=== PATIENT | female | born 1940 | race Two or more races ===

== ENCOUNTER → 2024-11-10 | Outpatient (CLI) | payer MEDICARE, MEDICAID, SELFPAY ==
--- NOTE | 2024-11-10 16:14 | XR_ITS ---
Examination: Abdomen AP single view Technique: AP portable supine abdomen, single view Exam date and time: November 10, 2024 1627 hours INDICATIONS: Left-sided abdominal pain beginning several years ago. FINDINGS: Large amounts of stool throughout the colon No obstruction No free air Surgical clips upper right abdomen Lumbar dextroscoliosis 15 degrees with advanced lumbar degenerative disc disease Moderate bilateral hip osteoarthritis IMPRESSION: Large amounts of stool throughout the colon
== END | disposition home or self-care (01) ==
LOC: CDIM 16:05
PROVIDERS: PCP Family Medicine; Referring Provider Specialist; Visit Provider Specialist
DX: K59.00 Constipation, unspecified (principal)
CPT/HCPCS: 74018

== ENCOUNTER → 2024-11-11 | Outpatient (CLI) | payer MEDICARE, MEDICAID, SELFPAY ==
--- NOTE | 2024-11-11 08:36 | XR_ITS ---
Examination: Abdomen sonogram, Limited Date and time of exam: November 11, 2024 0844 hours INDICATIONS: Left upper abdominal pain beginning 2 weeks ago, history gastritis Technique: Real-time saxena scale transabdominal sonographic images of the upper abdomen obtained. Findings: Absent gallbladder Normal common bile duct 0.4 cm Pancreatic head 2.7 cm Liver 16.8 cm smooth contour no focal liver lesions Normal hepatopedal portal venous flow Patent IVC IMPRESSION: Absent gallbladder Normal common bile duct Mild hepatomegaly
[2024-11-11 09:28] LABS: Basophils % (Auto) 0 % (0-2.5); Eosinophils # (Auto) 0.2 Thou/mm3 (0.0-0.5); Eosinophils % (Auto) 3 % (0-10); Hematocrit 41.1 % (36.0-46.0); Hemoglobin 13.4 g/dL (12.0-16.0); Immature Granulocytes % (Auto) 1 % (0-0); Immature Granulocytes Auto 0.04 Thou/mm3 (0.00-0.00); Lymphocytes # (Auto) 2.1 Thou/mm3 (1.0-4.8); Lymphocytes % (Auto) 30 % (10-50); Mean Corpuscular HGB Conc 32.6 g/dl (31.0-37.0); Mean Corpuscular Hemoglobin 31.1 pg (25.0-35.0); Mean Corpuscular Volume 95 fL (80-100); Monocytes # (Auto) 0.7 Thou/mm3 (0.0-0.8); Monocytes % (Auto) 11 % (0-12); Neutrophils # (Auto) 3.8 Thou/mm3 (1.8-7.7); Neutrophils % (Auto) 56 % (37-80); Nucleated Red Blood Cell % 0 /100 WBC (0); Platelet Count 256 Thou/mm3 (140-440); RDW Standard Deviation 46.5 fL (36.4-46.3); Red Blood Count 4.31 Miln/mm3 (4.00-5.20); White Blood Count 6.9 Thou/mm3 (3.6-11.0)
[2024-11-11 09:35] LABS: Collection Type, Urine Clean Catch; Squamous Epithelial Cell,Urine 0 /hpf (0-5)
[2024-11-11 10:03] LABS: Alanine Aminotransferase < 7 U/L (10-49); Albumin, Serum 4.6 gm/dL (3.4-4.8); Albumin/Globulin Ratio 1.5 (1.2-2.2); Alkaline Phosphatase 98 U/L (46-116); Amylase 116 U/L (30-118); Anion Gap 9 (7-16); Aspartate Amino Transferase 18 U/L (0-34); BUN/Creatinine Ratio 19 Ratio (12-20); Bilirubin,Total 1.4 mg/dL (0.3-1.2); Blood Urea Nitrogen 15 mg/dL (9-23); Calcium 10.9 mg/dL (8.3-10.6); Calcium (Corrected) 10.9 mg/dL (8.5-10.1); Carbon Dioxide 30.2 mMol/L (20.0-31.0); Chloride 98 mMol/L (98-107); Creatinine (Component) 0.8 mg/dL (0.6-1.3); Glucose 100 mg/dL (74-106); Lipase 40 U/L (12-53); Osmolality,Calculated 274 (275-295); Potassium 4.9 mMol/L (3.4-5.1); Sodium 137 mMol/L (136-145); Total Protein 7.6 gm/dL (5.7-8.2); eGFR > 60 See Note
[2024-11-11 10:55] LABS: Bilirubin,Urine Negative (Negative); Blood,Urine Negative (Negative); Clarity,Urine Clear (Clear/Hazy); Color,Urine Lt-Yellow (Lt Yel-Yel); Glucose, Urine 4+ (Negative); Ketones,Urine Negative (Negative); Leukocyte Esterase,Urine Negative (Negative); Nitrite,Urine Negative (Negative); Protein,Urine Negative (Neg - Trace); RBC,Urine 2 /hpf (0-3); Specific Gravity,Urine 1.017 (1.001-1.035); Urobilinogen,Urine Negative mg/dL (0.0-1.0); WBC,Urine < 1 /hpf (0-5)
== END | disposition home or self-care (01) ==
PROVIDERS: PCP Family Medicine; Referring Provider Specialist; Visit Provider Radiology Diagnostic Radiology
DX: R16.0 Hepatomegaly, not elsewhere classified (principal); Z90.49 Acquired absence of other specified parts of digestive tract; R10.9 Unspecified abdominal pain
CPT/HCPCS: 36415; 76705; 80053; 81001; 82150; 83690; 85025

== ENCOUNTER 2025-05-06 09:37 | Emergency (ER) | payer MEDICARE, MEDICAID, SELFPAY ==
[2025-05-06 09:39] VITALS: BMI 22.9
[2025-05-06 09:52] VITALS: BP 185/78; PULSE 61; RESP 16; TEMP 37.1; O2SAT 95
[2025-05-06] MEDS: MG HYD/AL HYD/SIME (Maalox Reg) SUSP 30 ML UDC PO (10:06)
--- NOTE | 2025-05-06 10:12 | PD.EDABDPN ---
ED Abdominal Pain RME/HPI General Chief Complaint: Abdominal Pain Stated complaint: HEARTBURN AND UPPER ABDOMEN PAIN Time seen by provider: 05/06/25 09:45 Arrival date/time: 05/06/25 09:37 84-year-old female with a history of hyperlipidemia, type 2 diabetes, cholecystectomy, presents to the emergency room with a chief complaint of heartburn and upper epigastric pain x 4 days Source: patient Mode of arrival: ambulatory Limitations: no limitations Related Data Home Medications ?Medication ?Instructions ?Recorded ?Confirmed acetaminophen 500 mg tablet 650 mg PO Q8HR PRN Pain 03/26/23 03/01/24 calcium carbonate 500 mg PO BID 03/26/23 03/01/24 gabapentin 100 mg capsule 100 mg PO BID 03/26/23 03/01/24 metformin 1,000 mg tablet 1,000 mg PO BID 03/26/23 03/01/24 sitagliptin phosphate 100 mg 100 mg PO DAILY 03/26/23 03/01/24 tablet (Januvia) atorvastatin 20 mg tablet 20 mg PO QDAY 03/01/24 03/01/24 Allergies Allergy/AdvReac Type Severity Reaction Status Date / Time shrimp Allergy Hives Verified 05/06/25 09:42 Review of Systems Review of Systems Systems Reviewed: All systems reviewed, normal except as documented Constitutional Constitutional: Reports system reviewed and no additional complaints, except as documented, Denies fatigue, Denies fever(s), Denies headache(s) and Denies weakness Eyes Eyes: Reports system reviewed and no additional complaints, except as documented, Denies blurry vision and Denies change in vision ENT Ears, Nose, Mouth, and Throat: Reports system reviewed and no additional complaints, except as documented, Denies otalgia, Denies headache(s), Denies nasal congestion, Denies throat swelling and Denies vertigo Cardiovascular Cardiovascular: Reports system reviewed and no additional complaints, except as documented, Denies chest pain, Denies dyspnea and Denies dyspnea on exertion Respiratory Respiratory: Reports system reviewed and no additional complaints, except as documented, Denies chest congestion, Denies cough, Denies dyspnea, Denies dyspnea on exertion and Denies wheezing Gastrointestinal Gastrointestinal: Reports system reviewed and no additional complaints, except as documented, Reports abdominal pain, Reports cramping, Reports heartburn, Reports nausea and Denies vomiting Genitourinary Genitourinary: Reports system reviewed and no additional complaints, except as documented Musculoskeletal Musculoskeletal: Reports system reviewed and no additional complaints, except as documented and Denies back pain Integumentary/Breasts Skin/Breast: Reports system reviewed and no additional complaints, except as documented and Denies wounds Neurologic Neurologic: Reports system reviewed and no additional complaints, except as documented, Denies confusion, Denies headache(s), Denies lack of coordination, Denies vertigo and Denies weakness Psychiatric Psychiatric: Reports system reviewed and no additional complaints, except as documented, Denies anxiety, Denies confusion, Denies depression, Denies paranoia, Denies suicidal ideation and Denies tactile hallucinations Endocrine Endocrine: Reports system reviewed and no additional complaints, except as documented and Denies fatigue Hematologic/Lymphatic Hematologic/Lymphatic: Reports system reviewed and no additional complaints, except as documented and Denies lymphadenopathy Allergic/Immunologic Allergic/Immunologic: Reports system reviewed and no additional complaints, except as documented, Denies throat swelling, Denies urticaria and Denies wheezing Past Medical History Past Medical History NEUROLOGIC: Negative Neurological Disorders or Seizures CARDIAC: Positive Cardiac Disorders, Hypercholesterolemia and Hypertension; Negative Congestive Heart Failure RESPIRATORY: Negative Chronic Obstructive Pulmonary Disease (COPD) or Asthma GASTROINTESTINAL: Positive Gastrointestinal Disorders and Gastroesophageal Reflux Disease GENITOURINARY: Negative Genitourinary Disorders or Renal Disease MUSCULOSKELETAL: Positive Musculoskeletal Disorders and Arthritis ENT: Positive Cataracts ENDOCRINE: Positive Endocrine Disorders and Diabetes Mellitus Type 2; Negative Diabetes Mellitus Type 1 HEMATOLOGIC: Positive Anemia; Negative Sickle Cell Disease PSYCHO/SOCIAL: Positive Depression OTHER HISTORY: Negative Autoimmune Disease, Blood Transfusions, Blood Transfusion Reaction, Anesthesia Reactions, MRSA, VRSA, Chicken Pox, Measles, Mumps, Clostridium Difficile or Cancer Social History SMOKING STATUS: Never smoker SUBSTANCE USE: does not use ED Exam General Limitations: Present no limitations General appearance: Present alert and in no apparent distress Head Head exam: Present atraumatic Eye Eye exam: Present normal appearance, PERRL and EOMI ENT ENT exam: Present normal exam, normal oropharynx and mucous membranes moist Neck Neck exam: Present normal inspection, full ROM and trachea midline Chest Chest inspection: Present normal inspection and symmetric chest wall rise Respiratory Respiratory exam: Present normal lung sounds bilaterally Cardiovascular Cardiovascular exam: Present regular rate, normal rhythm and normal heart sounds Abdominal Exam Abdominal exam: Present soft, tenderness and normal bowel sounds; Absent Raymond's sign or tenderness at McBurney's Point Abdominal tenderness: Present epigastrium and moderate Extremities Exam Extremities exam: Present normal inspection and full ROM Back Exam Back exam: Present normal inspection and full ROM Neurological Exam Neurological exam: Present alert, oriented X3 and CN II-XII intact Psychiatric Psychiatric exam: Present normal affect and normal mood Skin Skin exam: Present warm, dry, intact and normal color Course Quality Measures none Orders Category Date Time Status CBC Stat Lab 05/06/25 10:12 Completed CMP [Comprehensive Metabolic Panel] Stat Lab 05/06/25 10:12 Completed Lipase Stat Lab 05/06/25 10:12 Completed Pantoprazole [Protonix] Med 05/06/25 10:00 Discontinued 40 mg PO X1 ONE mg Hyd/Al Hyd/Denisse Susp [Maalox Susp] Med 05/06/25 10:00 Discontinued 30 ml PO X1 ONE Vital Signs Vital signs: Vital Signs Temperature 98.7 F 05/06/25 09:52 Pulse Rate 61 05/06/25 09:52 Respiratory Rate 16 05/06/25 09:52 Blood Pressure 185/78 H 05/06/25 09:52 Pulse Oximetry (%) 95 05/06/25 09:52 Oxygen Delivery Method Room Air 05/06/25 09:52 O2 saturation within normal limits okay Abdominal Pain MDM MDM Narrative MDM Narrative:: 84-year-old female with a history of hyperlipidemia, type 2 diabetes, cholecystectomy, presents to the emergency room with a chief complaint of heartburn and upper epigastric pain x 4 days Patient is hemodynamically stable and in no apparent distress Patient is hemodynamically stable and in no apparent distress Physical examination shows some 5 out of 10 epigastric abdominal tenderness. There is no right lower quadrant or left lower quadrant abdominal tenderness. Patient states she has been dealing with heartburn but it has progressively gotten worse. Medication was given with significant improvement to her symptoms CBC CMP are within normal limits. The patient has a history of a cholecystectomy. Patient denies any vomiting or constipation. Patient denies any chest pain or palpitations. Patient was educated to follow-up with her primary care provider if her signs and symptoms continue as a referral to a partner marketing intern for an endoscopy may be indicated Patient was discharged and educated to follow-up with primary care provider in the next 24 to 48 hours and return to the emergency room for any evidence of worsening signs or symptoms Patient data External records reviewed:: [facility] previous records Clinical information provided by:: patient Social determinants that could affect healthcare access:: none Patient has the following chronic illnesses:: Hypertension, hyperlipidemia, type 2 diabetes How is presenting disease/condition affected by chronic disease/condition?: uneffected by Evaluation data The following diagnostics were reviewed and interpreted by me:: lab results and radiology exam(s) Lab and/or radiology exams considered but not ordered:: Labs and radiology exams considered and ordered Interpretation Summary: N/A Medications / Prescriptions Medications or Prescriptions considered but not ordered:: Medication given Medication administrations:: Medication Administration History Discontinued Medications Al Hydrox/Mg Hydrox/Simethicone (Mg Hyd/Al Hyd/Denisse (Maalox Reg) Susp 30 Ml Udc) 30 ml PO X1 ONE Stop: 05/06/25 10:01 Last Admin: 05/06/25 10:06 Dose: 30 ml Documented By: AYANA Pantoprazole Sodium (Pantoprazole 40 Mg Tablet) 40 mg PO X1 ONE Stop: 05/06/25 10:01 Last Admin: 05/06/25 10:07 Dose: Not Given Documented By: AYANA Non-Admin Reason: Patient Refused Medication given Consultations Consultation(s) initiated? (list below): No Diagnosis Differential diagnosis abdominal pain: abdominal pain, constipation, gastroenteritis and other (Gastritis) Most likely diagnosis given after review of the tests above:: Gastritis Admission Indicated Admission indicated?: not indicated Admission Request Was there a request for admission?: No Disposition Plan Disposition Plan: Discharge Discharge Attestation Discharge Attestation: The patient and all family members were given an opportunity to ask questions and understood the discharge instructions. Discharge instructions specifically effects, indications for sooner follow up or return to the emergency department, and the expected course of current diagnosis. Patient condition: Stable Discharge Plan Plan Patient Disposition: HOME (Self Care) Discharge Disposition comment: Stable Prescriptions/Referrals Prescriptions/Med Rec: No Action acetaminophen 500 mg Tablet 650 mg PO Q8HR PRN (Reason: Pain) calcium carbonate 500 mg calcium (1,250 mg) tablet 500 mg PO BID Patient Comments: JIMMIE JORGE A TABLETA DOS VECES AL D A CON ALIMENTO metformin 1,000 mg tablet 1,000 mg PO BID gabapentin 100 mg capsule 100 mg PO BID Patient Comments: JIMMIE 1 C PSULA POR V A ORAL DOS VECES AL D A Januvia 100 mg tablet 100 mg PO DAILY Patient Comments: JIMMIE JORGE A TABLETA POR V A ORAL TODOS LOS D atorvastatin 20 mg tablet 20 mg PO QDAY Patient Comments: JIMMIE THAKKAR TABLETA TODOS LOS D FOR 90 DAYS Referrals: Jett Latif PA-C [Primary Care Provider] - In 1 week Problem List Clinical Impression: Gastritis Patient/Caregiver Discharge Instructions Education Materials: Treating Gastritis, Understanding Gastritis, ED Gastritis (Adult) Additional Instructions: Por favor, consulte con duque m?dico de cabecera en las pr?ximas 24 a 48 horas. Duque an?lisis de chas fue negativo para cualquier hallazgo jennifer o cualquier signo de infecci?n. Por favor, consulte con duque m?dico de cabecera, ya que podr?a ser necesario derivarlo a un gastroenter?logo para jorge a endoscopia si los signos y s?ntomas persisten. Por favor, contin?e tomando duque medicamento para la ERGE. Ante cualquier evidencia de empeoramiento de los signos o s?ntomas, regrese a urgencias inmediatamente. Print Language: Yi Stand Alone Forms: Yvette Award Info., Patient Portal Info Letter PA/[facility] Supervising Physician PA/MAKAYLA Supervising Physician: Dr. Lombardo
[2025-05-06 10:27] LABS: Basophils # (Auto) 0.0 Thou/mm3 (0.0-0.2); Basophils % (Auto) 0 % (0-2.5); Eosinophils # (Auto) 0.1 Thou/mm3 (0.0-0.5); Eosinophils % (Auto) 1 % (0-10); Hematocrit 35.7 % (36.0-46.0); Hemoglobin 12.2 g/dL (12.0-16.0); Immature Granulocytes Auto 0.03 Thou/mm3 (0.00-0.00); Lymphocytes # (Auto) 2.4 Thou/mm3 (1.0-4.8); Lymphocytes % (Auto) 28 % (10-50); Mean Corpuscular HGB Conc 34.2 g/dl (31.0-37.0); Mean Corpuscular Hemoglobin 32.6 pg (25.0-35.0); Mean Corpuscular Volume 96 fL (80-100); Monocytes # (Auto) 0.7 Thou/mm3 (0.0-0.8); Monocytes % (Auto) 9 % (0-12); Neutrophils # (Auto) 5.2 Thou/mm3 (1.8-7.7); Neutrophils % (Auto) 61 % (37-80); Nucleated Red Blood Cell # 0.00 Thou/mm3 (0.00-0.00); Nucleated Red Blood Cell % 0 /100 WBC (0); Platelet Count 211 Thou/mm3 (140-440); RDW Standard Deviation 46.0 fL (36.4-46.3); Red Blood Count 3.74 Miln/mm3 (4.00-5.20); White Blood Count 8.4 Thou/mm3 (3.6-11.0)
[2025-05-06 10:56] LABS: Alanine Aminotransferase 9 U/L (10-49); Albumin, Serum 4.5 gm/dL (3.4-4.8); Albumin/Globulin Ratio 1.6 (1.2-2.2); Alkaline Phosphatase 79 U/L (46-116); Anion Gap 9 (7-16); Aspartate Amino Transferase 25 U/L (0-34); BUN/Creatinine Ratio 17 Ratio (12-20); Bilirubin,Total 2.2 mg/dL (0.3-1.2); Blood Urea Nitrogen 15 mg/dL (9-23); Calcium 9.3 mg/dL (8.3-10.6); Calcium (Corrected) 9.3 mg/dL (8.5-10.1); Carbon Dioxide 29.8 mMol/L (20.0-31.0); Chloride 92 mMol/L (98-107); Creatinine (Component) 0.9 mg/dL (0.6-1.3); Estimated Creatinine Clearance 42.6 mL/min (>60); Globulin 2.9 gm/dL (2.3-3.5); Glucose 144 mg/dL (74-106); Lipase 35 U/L (12-53); Osmolality,Calculated 266 (275-295); Potassium 4.2 mMol/L (3.4-5.1); Sodium 131 mMol/L (136-145); Total Protein 7.4 gm/dL (5.7-8.2); eGFR > 60 See Note
== END 2025-05-06 11:18 | disposition home or self-care (01) ==
PROVIDERS: Emergency Provider Nurse Practitioner Family; PCP Family Medicine
DX: K29.70 Gastritis, unspecified, without bleeding (principal)
CPT/HCPCS: 36415; 80053; 83690; 85025; 99283; A9270